=== PATIENT | female | born 1975 | race Caucasian/White ===

== ENCOUNTER 2017-07-22 22:54 | Inpatient (IN) | payer OTHER ==
[2017-07-23] MEDS ORDERED: ONDANSETRON 4 MG INJ IV (01:00)
[2017-07-23] MEDS: ESCITALOPRAM 10 MG TAB PO ×2 (01:00→08:28)
[2017-07-23] MEDS ORDERED: NACL 0.9% 3 ML SYG IV (01:00)
[2017-07-23] MEDS ORDERED: ACETAMINOPHEN 325 MG TAB PO (01:00)
[2017-07-23] MEDS: GABAPENTIN 300 MG CAP PO ×5 (01:25→20:22)
[2017-07-23] MEDS: QUETIAPINE 100 MG TAB PO ×3 (01:25→20:23)
[2017-07-23] MEDS: PIPER-TAZO 3.375 GM IV (PMX) 100 ML IVPB ×4 (01:27→17:56)
[2017-07-23 02:04] LABS: ADD MAN DIFF? NO
[2017-07-23 02:09] LABS: WHITE BLOOD COUNT 18.8 10^3/ul (4.8-10.8)
[2017-07-23 02:09] LABS: BASOPHILS % 0.1 % (0.0-2.0); EOSINOPHILS % 0.1 % (0.0-7.0); HEMATOCRIT 30.4 % (37.0-47.0); HEMOGLOBIN 10.1 g/dl (12.0-16.0); LYMPHOCYTES # 0.6 10^3/ul (0.8-2.9); LYMPHOCYTES % 3.4 % (15.0-51.0); MEAN CORPUSCULAR HEMOGLOBIN 32.1 pg (29.0-33.0); MEAN CORPUSCULAR HGB CONC 33.2 g/dl (32.0-37.0); MEAN CORPUSCULAR VOLUME 96.5 fl (82.0-101.0); MEAN PLATELET VOLUME 9.2 fl (7.4-10.4); MONOCYTE # 0.2 10^3/ul (0.3-0.9); MONOCYTES % 1.2 % (0.0-11.0); NEUTROPHIL # 17.6 10^3/ul (1.6-7.5); NEUTROPHILS % 93.8 % (39.0-77.0); PLATELET COUNT 571 10^3/UL (140-415); RED BLOOD COUNT 3.15 10^6/ul (4.20-5.40); RED CELL DISTRIBUTION WIDTH 13.4 % (11.5-14.5)
[2017-07-23 02:20] LABS: POSITIVE DIFF @See below
[2017-07-23 02:22] LABS: HEMOGLOBIN A1C 5.5 % (0-5.9)
[2017-07-23 02:30] LABS: ALANINE AMINOTRANSFERASE 19 IU/L (13-69); ALKALINE PHOSPHATASE 75 IU/L (42-121); ANION GAP 16 (8-16); ASPARTATE AMINO TRANSFERASE 16 IU/L (15-46); BILIRUBIN,INDIRECT 0.1 mg/dl (0-1.1); BILIRUBIN,TOTAL 0.1 mg/dl (0.2-1.3); BLOOD UREA NITROGEN 16 mg/dl (7-20); CALCIUM 8.5 mg/dl (8.4-10.2); CARBON DIOXIDE 27 mmol/L (21-31); CHLORIDE 103 mmol/L (97-110); CHOL/HDL RATIO 2.9 RATIO; CHOLESTEROL 160 mg/dl (100-200); CREATININE 0.55 mg/dl (0.44-1.00); GLUCOSE 156 mg/dl (70-220); HDL CHOLESTEROL 55 mg/dl (34-88); LDL CHOLESTEROL,CALCULATED 92 mg/dl; MAGNESIUM 2.3 mg/dl (1.7-2.5); POTASSIUM 5.2 mmol/L (3.5-5.1); SODIUM 141 mmol/L (135-144); TOTAL PROTEIN 6.8 g/dl (6.1-8.1); TRIGLYCERIDES 63 mg/dl (0-149)
[2017-07-23 02:33] LABS: ALBUMIN 3.6 g/dl (3.3-4.9); ALBUMIN/GLOBULIN RATIO 1.12
[2017-07-23 03:52] LABS: THYROID STIMULATING HORMONE 0.086 MIU/L (0.465-4.680)
[2017-07-23] MEDS ORDERED: VANCOMYCIN IV PER PHARMACY XX (05:30)
[2017-07-23] MEDS ORDERED: PIPER-TAZO 3.375 GM IV (PMX) 100 ML IVPB (05:30)
[2017-07-23] MEDS ORDERED: ALBUTEROL/IPRATROPIUM (NEB) 3 ML AMP HHN ×2 (05:30→12:00)
[2017-07-23] MEDS ORDERED: LORAZEPAM 2 MG INJ IV (06:00)
[2017-07-23] MEDS: VANCOMYCIN 1.25 GM in SOD CHLORIDE 0.9% 250 ML IVPB (08:27)
[2017-07-23] MEDS: METHADONE 10 MG TAB PO (08:28)
[2017-07-23 13:44] LABS: FREE T4 (FREE THYROXINE) 0.73 ng/dl (0.64-1.79)
[2017-07-23 13:45] LABS: T4 (THYROXINE) 4.6 ug/dl (5.5-11.0)
[2017-07-23] MEDS: IBUPROFEN 600 MG TAB PO ×2 (14:22→21:31)
[2017-07-23] MEDS: NICOTINE (21 MG/24 HR) PATCH TRANSDERM (14:22)
[2017-07-23] MEDS: predniSONE 50 MG TAB PO (14:22)
[2017-07-23] MEDS: NICOTINE TD (15:29)
[2017-07-23] MEDS: VANCOMYCIN 1 GM 250 ML IVPB (20:24)
[2017-07-24] MEDS: PIPER-TAZO 3.375 GM IV (PMX) 100 ML IVPB ×2 (00:34→05:46)
[2017-07-24] MEDS: IBUPROFEN 600 MG TAB PO ×3 (05:46→22:47)
[2017-07-24 05:55] LABS: ADD MAN DIFF? NO
[2017-07-24 05:57] LABS: WHITE BLOOD COUNT 20.2 10^3/ul (4.8-10.8)
[2017-07-24 05:57] LABS: BASOPHILS % 0.1 % (0.0-2.0); HEMATOCRIT 31.9 % (37.0-47.0); HEMOGLOBIN 10.1 g/dl (12.0-16.0); MEAN CORPUSCULAR HEMOGLOBIN 31.7 pg (29.0-33.0); MEAN CORPUSCULAR HGB CONC 31.7 g/dl (32.0-37.0); MEAN PLATELET VOLUME 9.1 fl (7.4-10.4); MONOCYTE # 0.8 10^3/ul (0.3-0.9); NEUTROPHIL # 18.1 10^3/ul (1.6-7.5); NEUTROPHILS % 89.6 % (39.0-77.0); PLATELET COUNT 672 10^3/UL (140-415); RED BLOOD COUNT 3.19 10^6/ul (4.20-5.40); RED CELL DISTRIBUTION WIDTH 13.4 % (11.5-14.5)
[2017-07-24 06:18] LABS: ANION GAP 13 (8-16); BLOOD UREA NITROGEN 15 mg/dl (7-20); CALCIUM 8.7 mg/dl (8.4-10.2); CARBON DIOXIDE 26 mmol/L (21-31); CHLORIDE 106 mmol/L (97-110); CREATININE 0.63 mg/dl (0.44-1.00); GLUCOSE 150 mg/dl (70-220); MAGNESIUM 1.9 mg/dl (1.7-2.5); PHOSPHORUS 3.8 mg/dl (2.5-4.9); POTASSIUM 4.7 mmol/L (3.5-5.1); SODIUM 140 mmol/L (135-144)
[2017-07-24] MEDS: VANCOMYCIN 1 GM 250 ML IVPB (07:03)
[2017-07-24] MEDS: QUETIAPINE 100 MG TAB PO ×2 (08:54→20:35)
[2017-07-24] MEDS: GABAPENTIN 300 MG CAP PO ×4 (08:54→20:35)
[2017-07-24] MEDS: NICOTINE (21 MG/24 HR) PATCH TRANSDERM (08:55)
[2017-07-24] MEDS: ESCITALOPRAM 10 MG TAB PO (08:55)
[2017-07-24] MEDS: predniSONE 50 MG TAB PO (09:00)
[2017-07-24] MEDS: LEVOFLOXACIN 750 MG TABLET PO (12:51)
[2017-07-25] MEDS: LEVOFLOXACIN 750 MG TABLET PO (05:28)
[2017-07-25] MEDS: IBUPROFEN 600 MG TAB PO ×3 (05:28→21:09)
[2017-07-25] MEDS ORDERED: LEVOFLOXACIN 750 MG TABLET PO (06:00)
[2017-07-25] MEDS: NICOTINE (21 MG/24 HR) PATCH TRANSDERM (09:20)
[2017-07-25] MEDS: ESCITALOPRAM 10 MG TAB PO (09:20)
[2017-07-25] MEDS: GABAPENTIN 300 MG CAP PO ×4 (09:20→21:09)
[2017-07-25] MEDS: QUETIAPINE 100 MG TAB PO ×2 (09:21→21:10)
[2017-07-25] MEDS: predniSONE 50 MG TAB PO (09:21)
[2017-07-25] MEDS: CEFEPIME 2GM/50 ML (PMX) 50 ML IVPB ×2 (13:32→21:10)
[2017-07-26 05:52] LABS: ADD MAN DIFF? NO
[2017-07-26 06:02] LABS: BASOPHILS % 0.3 % (0.0-2.0); EOSINOPHILS % 0.3 % (0.0-7.0); HEMATOCRIT 34.3 % (37.0-47.0); HEMOGLOBIN 10.9 g/dl (12.0-16.0); LYMPHOCYTES # 1.9 10^3/ul (0.8-2.9); LYMPHOCYTES % 11.9 % (15.0-51.0); MEAN CORPUSCULAR HEMOGLOBIN 31.2 pg (29.0-33.0); MEAN CORPUSCULAR HGB CONC 31.8 g/dl (32.0-37.0); MEAN CORPUSCULAR VOLUME 98.3 fl (82.0-101.0); MEAN PLATELET VOLUME 8.9 fl (7.4-10.4); MONOCYTE # 1.4 10^3/ul (0.3-0.9); MONOCYTES % 8.8 % (0.0-11.0); NEUTROPHIL # 12.1 10^3/ul (1.6-7.5); NEUTROPHILS % 77.2 % (39.0-77.0); PLATELET COUNT 757 10^3/UL (140-415); RED BLOOD COUNT 3.49 10^6/ul (4.20-5.40); RED CELL DISTRIBUTION WIDTH 13.3 % (11.5-14.5)
[2017-07-26 06:02] LABS: WHITE BLOOD COUNT 15.7 10^3/ul (4.8-10.8)
[2017-07-26 06:34] LABS: ANION GAP 14 (8-16); BLOOD UREA NITROGEN 16 mg/dl (7-20); CALCIUM 8.6 mg/dl (8.4-10.2); CARBON DIOXIDE 28 mmol/L (21-31); CHLORIDE 104 mmol/L (97-110); CREATININE 0.64 mg/dl (0.44-1.00); GLUCOSE 91 mg/dl (70-220); POTASSIUM 4.2 mmol/L (3.5-5.1); SODIUM 142 mmol/L (135-144)
[2017-07-26] MEDS: GABAPENTIN 300 MG CAP PO ×3 (08:37→16:50)
[2017-07-26] MEDS: predniSONE 50 MG TAB PO (08:37)
[2017-07-26] MEDS: ESCITALOPRAM 10 MG TAB PO (08:37)
[2017-07-26] MEDS: NICOTINE (21 MG/24 HR) PATCH TRANSDERM (08:37)
[2017-07-26] MEDS: QUETIAPINE 100 MG TAB PO (08:37)
[2017-07-26] MEDS: CEFEPIME 2GM/50 ML (PMX) 50 ML IVPB (08:41)
[2017-07-26 09:54] LABS: AMPHETAMINE/METHAMPHETAMINE NEGATIVE (NEGATIVE); BARBITURATES NEGATIVE (NEGATIVE); BENZODIAZEPINES NEGATIVE (NEGATIVE); CANNABINOIDS NEGATIVE (NEGATIVE); COCAINE NEGATIVE (NEGATIVE); OPIATES NEGATIVE (NEGATIVE)
[2017-07-26] MEDS: GUAIFENESIN 20 MG/ML 5ML CUP PO (12:56)
[2017-07-26] MEDS: IBUPROFEN 600 MG TAB PO (12:57)
== END 2017-07-26 18:35 | disposition home or self-care (01) | DRG 195 ==
LOC: MS4 22:54 → MS2 07-23 14:32
DX: J18.9 Pneumonia, unspecified organism (principal); F32.9 Major depressive disorder, single episode, unspecified; Y95 Nosocomial condition; F15.10 Other stimulant abuse, uncomplicated; F11.10 Opioid abuse, uncomplicated; F39 Unspecified mood [affective] disorder; F41.9 Anxiety disorder, unspecified; F17.210 Nicotine dependence, cigarettes, uncomplicated; D47.3 Essential (hemorrhagic) thrombocythemia
CPT/HCPCS: 71045; 71250; 80048; 80053; 80061; 80307; 83036; 83735; 84100; 84436; 84439; 84443; 85025; 87070